=== PATIENT | female | born 1980 | race Caucasian/White ===

== ENCOUNTER → 2019-12-10 | Outpatient (CLI) | payer OTHER ==
[2019-12-12 15:11] LABS: HPV 16 Negative (Negative); HPV 18 Negative (Negative); HPV OTHER HR TYPES Negative (Negative)
== END | disposition home or self-care (01) ==
LOC: LAB SHORT 10:10 → LAB 10:10
PROVIDERS: Advanced Practice Midwife
DX: Z01.419 Encounter for gynecological examination (general) (routine) without abnormal findings (principal)
CPT/HCPCS: 87624; G0123

== ENCOUNTER 2021-03-22 12:08 | Day surgery (SDC) | payer OTHER ==
[~2021-03-22] VITALS: Ht 180.3 cm; Wt 75.5 kg
--- NOTE | 2021-03-22 14:12 | NUR ---
Ambulatory in Day Surgery History, Chart, Medications and Allergies reviewed before start of procedure. Lungs clear T/O to Auscultation. Patient confirms NPO status and agrees with scheduled surgery.
--- NOTE | 2021-03-22 15:28 | NUR ---
03/22/21 1528 Allie Hooks NO PREOPERATIVE ANTIBIOTICS ORDERED
--- NOTE | 2021-03-22 17:46 | NUR ---
Patient up to Ambulate independently. Gait steady. PT WITH POSTIVE VOID. Discharge instructions reviewed with patient. Patient verbalizes understanding. Copy given to patient to take home. Discharged via wheelchair to private car for ride home.
== END 2021-03-22 22:59 | disposition home or self-care (01) ==
LOC: ORD 12:08 → ORSCMMR 12:08 → ORD 22:59
PROVIDERS: Obstetrics & Gynecology
PROC: 10T24ZZ Resection of Products of Conception, Ectopic, Percutaneous Endoscopic Approach (ICD-10-PCS; principal; 2021-03-22 07:30)
PROC: 0UT64ZZ Resection of Left Fallopian Tube, Percutaneous Endoscopic Approach (ICD-10-PCS; principal; 2021-03-22 07:30)
DX: O00.102 Left tubal pregnancy without intrauterine pregnancy (principal); I10 Essential (primary) hypertension; F41.8 Other specified anxiety disorders
CPT/HCPCS: 88305; A9270; J1100; J1885; J2370; J2405; J2704; J3010; J7120

== ENCOUNTER → 2022-05-31 | Outpatient (CLI) | payer OTHER ==
[2022-06-02 11:01] LABS: HPV 16 Negative (Negative); HPV 18 Negative (Negative); HPV OTHER HR TYPES Negative (Negative)
== END | disposition home or self-care (01) ==
LOC: LAB 16:42 → LAB SHORT 16:42
PROVIDERS: Obstetrics & Gynecology
DX: Z34.01 Encounter for supervision of normal first pregnancy, first trimester (principal)
CPT/HCPCS: 87624; G0123

== ENCOUNTER → 2022-09-16 | Outpatient (CLI) | payer OTHER ==
[2022-09-16 13:38] LABS: BASOPHILS ABSOLUTE AUTO 0.03 K/mm3 (0.00-0.23); BASOPHILS PERCENT AUTO 0 % (0-2); EOSINOPHILS ABSOLUTE AUTO 0.09 K/mm3 (0.00-0.68); EOSINOPHILS PERCENT AUTO 1 % (0-6); Hematocrit 39.3 % (33.0-51.0); Hemoglobin 13.5 g/dL (11.5-16.0); IMMATURE GRAN ABSOLUTE AUTO 0.05 K/mm3 (0.00-0.10); IMMATURE GRAN PERCENT AUTO 1 % (0-1); LYMPHOCYTES ABSOLUTE AUTO 1.26 K/mm3 (0.84-5.20); LYMPHOCYTES PERCENT AUTO 14 % (21-46); MONOCYTES ABSOLUTE AUTO 0.62 K/mm3 (0.16-1.47); MONOCYTES PERCENT AUTO 7 % (4-13); Mean Corpuscular HGB 30.5 pg (26.0-34.0); Mean Corpuscular HGB Conc 34.4 g/dL (31.5-36.5); Mean Corpuscular Volume 89 fL (80-100); Mean Platelet Volume 9.6 fL (9.1-12.4); NEUTROPHILS ABSOLUTE AUTO 7.11 K/mm3 (1.96-9.15); NEUTROPHILS PERCENT AUTO 78 % (41-73); Platelet Count 278 K/mm3 (150-400); RDW Standard Deviation 39.5 fL (35.1-46.3); Red Blood Cell Count 4.43 M/mm3 (3.80-5.20); White Blood Cell Count 9.16 K/mm3 (4.00-11.30)
== END | disposition home or self-care (01) ==
LOC: LAB SHORT 10:20 → LAB 10:20
PROVIDERS: Advanced Practice Midwife
DX: Z34.83 Encounter for supervision of other normal pregnancy, third trimester (principal)
CPT/HCPCS: 82950; 85025

== ENCOUNTER 2022-12-07 19:59 | Inpatient (IN) | payer OTHER ==
[~2022-12-07] VITALS: Ht 180.3 cm; Wt 83.9 kg
[2022-12-07] MEDS ORDERED: LABE200 PO (20:26)
[2022-12-07] MEDS ORDERED: PRENATAL TABLE1 EAC2 PO (20:26)
[2022-12-07 20:29] LABS: BASOPHILS ABSOLUTE AUTO 0.04 K/mm3 (0.00-0.23); BASOPHILS PERCENT AUTO 0 % (0-2); EOSINOPHILS ABSOLUTE AUTO 0.08 K/mm3 (0.00-0.68); EOSINOPHILS PERCENT AUTO 1 % (0-6); Hematocrit 40.5 % (33.0-51.0); Hemoglobin 14.2 g/dL (11.5-16.0); IMMATURE GRAN ABSOLUTE AUTO 0.03 K/mm3 (0.00-0.10); IMMATURE GRAN PERCENT AUTO 0 % (0-1); LYMPHOCYTES ABSOLUTE AUTO 1.88 K/mm3 (0.84-5.20); LYMPHOCYTES PERCENT AUTO 19 % (21-46); MONOCYTES ABSOLUTE AUTO 0.83 K/mm3 (0.16-1.47); MONOCYTES PERCENT AUTO 8 % (4-13); Mean Corpuscular HGB 30.3 pg (26.0-34.0); Mean Corpuscular HGB Conc 35.1 g/dL (31.5-36.5); Mean Corpuscular Volume 86 fL (80-100); Mean Platelet Volume 9.5 fL (9.1-12.4); NEUTROPHILS ABSOLUTE AUTO 7.09 K/mm3 (1.96-9.15); NEUTROPHILS PERCENT AUTO 71 % (41-73); Platelet Count 319 K/mm3 (150-400); RDW Coefficient Variation 12.2 % (11.7-14.2); RDW Standard Deviation 38.5 fL (35.1-46.3); Red Blood Cell Count 4.69 M/mm3 (3.80-5.20); White Blood Cell Count 9.95 K/mm3 (4.00-11.30)
--- NOTE | 2022-12-08 21:00 | NUR ---
DIZZINESS/ BP NOTE; PT CALLED RN TO ROOM FOR SUDDEN ONSET OF DIZZINESS. BP ASSESS AT 156/100. LABETOLOL GIVEN PER ORDER AND FULL ASSESSMENT DONE AT THIS TIME. NEUROMUSCULAR ASSESMENT REMAINS WITHIN NORMAL LIMITS, DIZZINESS IMPROVING. PT EDUCATED ON FALL PREVENTION AND VERBILIZED UNDERSTANDING TO CALL FOR ASSISTANCE PRIOR TO GETTING OUT OF BED. PLAN TO REASSESS BP AND ASSESSMENT IN ABOUT ONE HOURS TIME.
[2022-12-09 09:00] LABS: BASOPHILS ABSOLUTE AUTO 0.03 K/mm3 (0.00-0.23); BASOPHILS PERCENT AUTO 0 % (0-2); EOSINOPHILS ABSOLUTE AUTO 0.06 K/mm3 (0.00-0.68); EOSINOPHILS PERCENT AUTO 0 % (0-6); Hemoglobin 11.4 g/dL (11.5-16.0); IMMATURE GRAN ABSOLUTE AUTO 0.07 K/mm3 (0.00-0.10); IMMATURE GRAN PERCENT AUTO 1 % (0-1); LYMPHOCYTES PERCENT AUTO 11 % (21-46); MONOCYTES ABSOLUTE AUTO 0.92 K/mm3 (0.16-1.47); MONOCYTES PERCENT AUTO 7 % (4-13); Mean Corpuscular HGB 30.2 pg (26.0-34.0); Mean Corpuscular HGB Conc 34.5 g/dL (31.5-36.5); Mean Corpuscular Volume 88 fL (80-100); Mean Platelet Volume 9.5 fL (9.1-12.4); NEUTROPHILS ABSOLUTE AUTO 11.53 K/mm3 (1.96-9.15); NEUTROPHILS PERCENT AUTO 81 % (41-73); Platelet Count 224 K/mm3 (150-400); RDW Coefficient Variation 12.2 % (11.7-14.2); RDW Standard Deviation 39.3 fL (35.1-46.3); Red Blood Cell Count 3.77 M/mm3 (3.80-5.20); White Blood Cell Count 14.21 K/mm3 (4.00-11.30)
[2022-12-09 09:31] LABS: Albumin, Blood 2.1 g/dL (3.4-5.0); Albumin/Globulin Ratio 0.6 (0.8-1.8); Bilirubin, Total 0.6 mg/dL (0.1-1.0); Bun/Creatinine Ratio 13.5 (12.0-20.0); Calcium, Blood 8.5 mg/dL (8.5-10.1); Creatinine, Blood 0.52 mg/dL (0.40-1.00); Globulin, Blood 3.3 g/dL (2.2-4.0); Potassium, Blood 3.6 mmol/L (3.5-5.5); Total Protein, Blood 5.4 g/dL (6.4-8.2)
--- NOTE | 2022-12-09 14:15 | NUR ---
Sitting in bed, NB. Will call for BP check when finished. Reports still having intermittent dizzy spells.
--- NOTE | 2022-12-09 18:42 | NUR ---
No acute changes t/o shift. Pt still having some c/o of dizziness but also feels she is exhausted and maybe better after a good rest at home. Feels safe discharging home. Educated to get up slowly from lying to sitting and sitting to standing, verbalized understanding. Printed instructions reviewed w/pt and , questions answered. Denies additional questions/concerns. ID bands matched w/nb and verification form. Pt d/c'd home ambulatory to care of .
== END 2022-12-09 18:30 | disposition home or self-care (01) | DRG 806 ==
LOC: OBS 19:59 → BC 20:00 → OBS 20:05 → BC 12-08 19:32
PROVIDERS: ADMIT Obstetrics & Gynecology
PROC: 10E0XZZ Delivery of Products of Conception, External Approach (ICD-10-PCS; principal; 2022-12-08)
PROC: 0HQ9XZZ Repair Perineum Skin, External Approach (ICD-10-PCS; 2022-12-08)
PROC: 10907ZC Drainage of Amniotic Fluid, Therapeutic from Products of Conception, Via Natural or Artificial Opening (ICD-10-PCS; 2022-12-08)
PROC: 3E0R3BZ Introduction of Anesthetic Agent into Spinal Canal, Percutaneous Approach (ICD-10-PCS; 2022-12-08)
PROC: 00HU33Z Insertion of Infusion Device into Spinal Canal, Percutaneous Approach (ICD-10-PCS; 2022-12-08)
DX: O10.92 Unspecified pre-existing hypertension complicating childbirth (principal); O99.354 Diseases of the nervous system complicating childbirth; Z37.0 Single live birth; G47.33 Obstructive sleep apnea (adult) (pediatric); O76 Abnormality in fetal heart rate and rhythm complicating labor and delivery; R42 Dizziness and giddiness; O70.0 First degree perineal laceration during delivery; Z3A.39 39 weeks gestation of pregnancy; Z99.81 Dependence on supplemental oxygen
CPT/HCPCS: 36415; 51702; 80053; 85025; 86850; 86900; 86901; A9270; J1885; J2210; J2590; J3010; J7120

== ENCOUNTER → 2023-07-26 | Outpatient (CLI) | payer BC ==
[~2023-07-26] MED LIST: LABE200 PO; PRENATAL TABLE1 EAC2 PO
[2023-07-30 18:06] LABS: HPV 16 Negative (Negative); HPV 18 Negative (Negative); HPV OTHER HR TYPES Negative (Negative)
== END ==
LOC: LAB 16:42 → LAB SHORT 16:42
PROVIDERS: Obstetrics & Gynecology
DX: Z01.419 Encounter for gynecological examination (general) (routine) without abnormal findings (principal)
CPT/HCPCS: 87624; G0145

== ENCOUNTER 2024-02-13 11:32 | Day surgery (SDC) | payer OTHER, BC ==
[~2024-02-13] VITALS: Ht 180.3 cm; Wt 74.8 kg
[2024-02-13] MEDS ORDERED: Lactated Ringer's 1,000 ML IV ONE ×2 (13:37→13:51)
[2024-02-13] MEDS ORDERED: FentaNYL Citrate 50 MCG/ML 2 ML Injection ONE (14:29)
[2024-02-13] MEDS ORDERED: propofoL 20 ML IV ONE ×2 (14:29→14:37)
[2024-02-13] MEDS ORDERED: Ketorolac Tromethamine 30mg Vial ONE (14:29)
[2024-02-13] MEDS ORDERED: Ondansetron HCl 2 MG / ML 2ML Vial ONE (14:29)
[2024-02-13] MEDS ORDERED: Dexamethasone Sod Phos 10 MG/ML 1ML VIAL ONE (14:29)
[2024-02-13] MEDS ORDERED: Acetaminophen 500 MG Tab ONE (15:57)
[2024-02-13 16:13] VITALS: BP 124/78
== END 2024-02-13 16:12 | disposition home or self-care (01) ==
LOC: ORSCSDS 11:32
PROVIDERS: Obstetrics & Gynecology
PROC: 10D17ZZ Extraction of Products of Conception, Retained, Via Natural or Artificial Opening (ICD-10-PCS; principal; 2024-02-13 12:30)
DX: O03.9 Complete or unspecified spontaneous abortion without complication (principal); O02.89 Other abnormal products of conception; G47.33 Obstructive sleep apnea (adult) (pediatric); F32.A Depression, unspecified; F41.9 Anxiety disorder, unspecified
CPT/HCPCS: 76998; 88305; 88342; 88374; A9270; J1100; J1885; J2405; J2704; J3010; J7120

== ENCOUNTER → 2025-02-18 | Outpatient (CLI) | payer OTHER, BC | END | disposition home or self-care (01) | LOC: LAB SHORT 11:19 → LAB 11:19 | DX: O09.522 Supervision of elderly multigravida, second trimester (principal) | CPT/HCPCS: 87081; 87150 ==